=== PATIENT | female | born 1980 | race Caucasian/White ===

== ENCOUNTER 2016-09-30 02:53 | Observation (INO) | payer OTHER ==
[~2016-09-30] VITALS: Ht 152.4 cm; Wt 65.2 kg
[2016-09-30 03:25] LABS: CHLORIDE 106 mEq/L (99-109); POTASSIUM 3.8 mEq/L (3.7-5.4); SODIUM 139 mEq/L (136-147)
[2016-09-30 03:27] LABS: GLUCOSE 118 mg/dL (70-99)
[2016-09-30 03:28] LABS: ANION GAP 9 MEQ/L (2-14)
[2016-09-30 03:29] LABS: TOTAL BILIRUBIN 0.5 mg/dL (0.0-1.0)
[2016-09-30 03:31] LABS: ALKALINE PHOSPHATASE 49 IU/L (3-129); GFR ESTIMATE (CALCULATED) > 59 mL/min/
[2016-09-30 03:32] LABS: UREA NITROGEN (BUN) 8 mg/dL (9-23)
[2016-09-30 03:33] LABS: HEMATOCRIT 43.8 % (36.0-46.0); MCH 30.6 PG (29.0-34.0); MCHC 33.6 G/DL (30.0-36.0); MCV 91.1 FL (83-99); MEAN PLAT.VOLUME 9.6 uM^3 (9.5-12.4); PLATELET COUNT 476 K/uL (156-360); RBC DIS.WIDTH-CV 12.4 % (11.8-14.6); RBC DIS.WIDTH-SD 41.3 % (39-53); RED BLOOD COUNT 4.81 M/uL (3.80-5.20); WHITE BLOOD COUNT 14.9 K/uL (4.1-10.2)
[2016-09-30 03:39] LABS: QUANTITATIVE HCG < 4.0 MIU/ML
[2016-09-30 05:14] LABS: LIPASE 19 U/L (1.0-51.0)
[2016-09-30 07:27] VITALS: BP 104/63
[2016-09-30 08:34] LABS: ADD MIUA? NO; BILIRUBIN NEGATIVE; BLOOD NEGATIVE; COLOR YELLOW ((YELLOW)); GLUCOSE (STRIP) NEGATIVE; KETONES NEGATIVE; LEUKOCYTES NEGATIVE; NITRITE NEGATIVE; PROTEIN (STRIP) NEGATIVE; UROBILINOGEN 0.2 MG/DL (0.2-1.0)
[2016-09-30 08:41] LABS: SPECIFIC GRAVITY 1.056 (1.000-1.030)
[2016-09-30 11:23] VITALS: BP 90/52
[2016-09-30 15:35] VITALS: BP 99/61
[2016-09-30 15:44] VITALS: BP 195/81
[2016-09-30 20:30] VITALS: BP 109/64
[2016-10-01 00:02] VITALS: BP 115/89
[2016-10-01 04:40] VITALS: BP 100/56
[2016-10-01 06:21] LABS: BASOPHIL COUNT 0.1 K/uL (0-0.1); EOSINOPHIL (%) 1.6 % (0-5); EOSINOPHIL COUNT 0.2 K/uL (0-0.3); HEMATOCRIT 35.2 % (36.0-46.0); IMMATURE GRANULOCYTE (%) 0.3 % (0.0-0.7); INSTRUMENT ABS NEUTROPHIL CT 6.8 K/uL; LYMPHOCYTE COUNT 3.7 K/uL (1.0-2.8); MCH 31.4 PG (29.0-34.0); MCHC 33.8 G/DL (30.0-36.0); MCV 92.9 FL (83-99); MEAN PLAT.VOLUME 10.1 uM^3 (9.5-12.4); MONOCYTE (%) 6.8 % (3-12); MONOCYTE COUNT 0.8 K/uL (0-0.8); NEUTROPHIL (%) 58.7 % (45-76); NEUTROPHIL COUNT 6.8 K/uL (1.8-6.4); PLATELET COUNT 354 K/uL (156-360); RBC DIS.WIDTH-CV 12.6 % (11.8-14.6); RBC DIS.WIDTH-SD 43.1 % (39-53); WHITE BLOOD COUNT 11.6 K/uL (4.1-10.2)
[2016-10-01 06:26] LABS: RED BLOOD COUNT 3.79 M/uL (3.80-5.20)
[2016-10-01 06:47] LABS: ALKALINE PHOSPHATASE 46 IU/L (3-129); ANION GAP 6 MEQ/L (2-14); C-REACTIVE PROTEIN 4.1 MG/L (0-10); CHLORIDE 110 MEQ/L (99-109); DIRECT BILIRUBIN 0.1 mg/dL (0.0-0.3); GFR ESTIMATE (CALCULATED) > 59 mL/min/; GLUCOSE 88 mg/dL (70-99); POTASSIUM 4.1 MEQ/L (3.7-5.4); SAMPLE HEMOLYSIS CHECK 0; SAMPLE ICTERIC CHECK 0; SAMPLE LIPEMIA CHECK 0; SODIUM 138 MEQ/L (136-147); TOTAL BILIRUBIN 0.6 MG/DL (0.0-1.0); UREA NITROGEN (BUN) 7 mg/dL (9-23)
[2016-10-01 06:48] LABS: ALKALINE PHOSPHATASE 45 IU/L (3-129); ANION GAP 5 MEQ/L (2-14); CHLORIDE 110 MEQ/L (99-109); GFR ESTIMATE (CALCULATED) > 59 mL/min/; GLUCOSE 89 mg/dL (70-99); POTASSIUM 4.1 MEQ/L (3.7-5.4); SAMPLE HEMOLYSIS CHECK 0; SAMPLE ICTERIC CHECK 0; SAMPLE LIPEMIA CHECK 0; SODIUM 139 MEQ/L (136-147); TOTAL BILIRUBIN 0.6 MG/DL (0.0-1.0); UREA NITROGEN (BUN) 7 mg/dL (9-23)
[2016-10-01 07:43] LABS: ERTH.SED.RATE 7 MM/HR (0-20)
[2016-10-01 08:15] VITALS: BP 98/54
[2016-10-01] MEDS ORDERED: TYLENOL REGULA325 MG PO (10:59)
[2016-10-01] MEDS ORDERED: ZANTAC75 M1 PO (10:59)
[2016-10-01] MEDS ORDERED: PROTONIX20 MG PO (12:24)
[2016-10-01] MEDS ORDERED: ZOFRAN ODT4 MG PO (12:24)
[2016-10-01] MEDS ORDERED: PERCOCET 5/31 TABLET PO (12:24)
[2016-10-01 12:45] VITALS: BP 102/64
== END 2016-10-01 13:18 | disposition home or self-care (01) ==
LOC: EME 02:53 → EDOF 05:28 → 5WEST 05:28
PROVIDERS: Internal Medicine Gastroenterology; Surgery
DX: R10.31 Right lower quadrant pain (principal); K58.9 Irritable bowel syndrome, unspecified; Z88.0 Allergy status to penicillin; Z88.1 Allergy status to other antibiotic agents; R11.2 Nausea with vomiting, unspecified; K29.70 Gastritis, unspecified, without bleeding; K25.9 Gastric ulcer, unspecified as acute or chronic, without hemorrhage or perforation
CPT/HCPCS: 74177; 80048; 80053; 80076; 81003; 83690; 84702; 85025; 85027; 85651; 86140; 88305; 88342 TC; 99281; 99285; G0378; J0744; J1885; J2270; J2405; J2765; J3010; J7030; S0030

== ENCOUNTER 2017-09-13 20:14 | Emergency (ER) | payer OTHER ==
[~2017-09-13] VITALS: Ht 152.4 cm; Wt 69.8 kg
[~2017-09-13 20:14] MED LIST: PERCOCET 5/31 TABLET PO; PROTONIX20 MG PO; TYLENOL REGULA325 MG PO; ZANTAC75 M1 PO; ZOFRAN ODT4 MG PO
[2017-09-13 20:58] LABS: HEMATOCRIT 42.9 % (36.0-46.0); HEMOGLOBIN 14.5 G/DL (11.9-15.5); MCH 31.2 PG (29.0-34.0); MCHC 33.8 G/DL (30.0-36.0); MCV 92.3 FL (83-99); PLATELET COUNT 481 K/uL (156-360); RBC DIS.WIDTH-CV 12.1 % (11.8-14.6); RBC DIS.WIDTH-SD 40.8 % (39-53); RED BLOOD COUNT 4.65 M/uL (3.80-5.20); WHITE BLOOD COUNT 14.2 K/uL (4.1-10.2)
[2017-09-13 21:06] LABS: ALBUMIN 4.2 g/dL (3.2-4.8); CHLORIDE 106 mEq/L (99-109); POTASSIUM 3.8 mEq/L (3.7-5.4); SODIUM 140 mEq/L (136-147)
[2017-09-13 21:08] LABS: GLUCOSE 110 mg/dL (70-99); TOTAL PROTEIN 7.9 g/dL (6.4-8.3)
[2017-09-13 21:10] LABS: TOTAL BILIRUBIN 0.6 mg/dL (0.0-1.0)
[2017-09-13 21:12] LABS: ALKALINE PHOSPHATASE 69 IU/L (3-129); CREATININE 0.7 mg/dL (0.6-1.3); GFR ESTIMATE (CALCULATED) > 59 mL/min/
[2017-09-13 21:13] LABS: AST (GOT) 22 IU/L (2-34); UREA NITROGEN (BUN) 9 mg/dL (9-23)
[2017-09-13 21:15] LABS: ALT (GPT) 23 IU/L (3-49)
[2017-09-13 21:21] LABS: QUANTITATIVE HCG < 4.0 MIU/ML
[2017-09-13 22:00] LABS: APPEARANCE CLEAR ((CLEAR)); BILIRUBIN MODERATE; BLOOD NEGATIVE; GLUCOSE (STRIP) NEGATIVE; KETONES 5; LEUKOCYTES NEGATIVE; NITRITE NEGATIVE; PROTEIN (STRIP) 30; SPECIFIC GRAVITY 1.042 (1.000-1.030); UCUL ADDED? NO
[2017-09-13 22:04] LABS: COLOR DK YELLOW ((YELLOW)); ICTOTEST ND
[2017-09-13 22:16] LABS: BASOPHIL (%) 0.3 % (0-1); EOSINOPHIL (%) 1.4 % (0-5); EOSINOPHIL COUNT 0.2 K/uL (0-0.3); LYMPHOCYTE (%) 15.4 % (15-42); LYMPHOCYTE COUNT 2.3 K/uL (1.0-2.8); MONOCYTE (%) 5.1 % (3-12); MONOCYTE COUNT 0.8 K/uL (0-0.8); NEUTROPHIL (%) 76.8 % (45-76); NEUTROPHIL COUNT 11.3 K/uL (1.8-6.4)
[2017-09-13] MEDS ORDERED: FLAGYL500 MG PO (23:02)
[2017-09-13] MEDS ORDERED: LEVAQUIN500 MG PO (23:02)
[2017-09-13] MEDS ORDERED: VENTOLIN HFA18 GM IH (23:02)
[2017-09-13] MEDS ORDERED: BENTYL20 MG PO (23:04)
[2017-09-13] MEDS ORDERED: ZOFRAN ODT8 MG PO (23:04)
[2017-09-13 23:45] VITALS: BP 110/70
== END 2017-09-14 00:01 | disposition home or self-care (01) ==
LOC: EXP 20:14 → EME 20:14 → EXP 09-14 00:01
DX: K52.9 Noninfective gastroenteritis and colitis, unspecified (principal); J18.0 Bronchopneumonia, unspecified organism; E86.0 Dehydration; K21.9 Gastro-esophageal reflux disease without esophagitis; F17.200 Nicotine dependence, unspecified, uncomplicated; Z88.0 Allergy status to penicillin; Z90.49 Acquired absence of other specified parts of digestive tract
CPT/HCPCS: 74177; 80053; 81003; 84702; 85025; 85027; 87493; 87506; 99281; 99285; J0500; J1885; J2405; J7030